=== PATIENT | female | born 1985 | race African-American/Black ===

== ENCOUNTER 2021-12-20 02:06 | Emergency (ER) | payer OTHER ==
[~2021-12-20] VITALS: Ht 167.6 cm; Wt 78.7 kg
[2021-12-20] MEDS ORDERED: LABE100T5 PO (02:14)
[2021-12-20] MEDS ORDERED: KETOROLAC 30 MG/ML 1ML VIAL IV ONE (07:45)
[2021-12-20] MEDS ORDERED: PANTOPRAZOLE 40MG VIAL (C9113 PER 1) IV ONE (07:45)
[2021-12-20 08:17] LABS: BASO % 0.1 % (0.0-1.0); HEMATOCRIT 38.9 % (36.0-47.0); LYMPH # 1.8 10^3/uL (1.5-5.0); LYMPH % 26.3 % (24.0-44.0); MEAN CORPUSCULAR HEMOGLOBIN 29.1 pg (27.0-33.0); MEAN CORPUSCULAR HGB CONC 33.4 g/dl (32.0-36.5); MONO # 0.4 10^3/uL (0.0-0.8); MONO % 6.2 % (2.0-8.0); NEUTROPHILS # 4.6 10^3/uL (1.5-8.5); NEUTROPHILS % 67.3 % (36.0-66.0); PLATELET COUNT, AUTOMATED 175 10^3/uL (150-450); RED BLOOD COUNT 4.47 10^6/uL (4.00-5.40); WHITE BLOOD COUNT 6.9 10^3/uL (4.0-10.0)
[2021-12-20 08:48] LABS: ALT/SGPT 21 U/L (12-78); BILIRUBIN,DIRECT < 0.1 MG/DL (0.0-0.2); BILIRUBIN,TOTAL 0.2 MG/DL (0.2-1.0); LIPASE 92 U/L (73-393); TOTAL PROTEIN 7.9 GM/DL (6.4-8.2)
[2021-12-20 09:24] VITALS: BP 138/70
[2021-12-20] MEDS ORDERED: ISOVUE-370 76% 100ML VIAL As Ordered ONE (09:40)
[2021-12-20] MEDS ORDERED: ACET325C5 PO ×2 (11:40→11:41)
== END 2021-12-20 11:44 | disposition home or self-care (01) ==
LOC: M ED 02:06
DX: N85.2 Hypertrophy of uterus (principal); K42.0 Umbilical hernia with obstruction, without gangrene; R10.31 Right lower quadrant pain; I10 Essential (primary) hypertension
CPT/HCPCS: 74177; 80047; 80076; 81001; 83690; 84702; 85025; 96374; 96375; 99284; C9113; J1885; Q9967

== ENCOUNTER 2022-02-02 09:50 | Emergency (ER) | payer OTHER ==
[~2022-02-02] VITALS: Ht 160 cm; Wt 78.9 kg
[~2022-02-02 09:50] MED LIST: ACET325C5 PO; LABE100T5 PO
[2022-02-02 11:42] LABS: HEMATOCRIT 39.7 % (36.0-47.0); HEMOGLOBIN 13.5 g/dl (12.0-15.5); MEAN CORPUSCULAR HEMOGLOBIN 29.8 pg (27.0-33.0); MEAN CORPUSCULAR VOLUME 87.6 fl (80.0-96.0); PLATELET COUNT, AUTOMATED 167 10^3/uL (150-450); RED BLOOD COUNT 4.53 10^6/uL (4.00-5.40); WHITE BLOOD COUNT 6.2 10^3/uL (4.0-10.0)
[2022-02-02 14:27] VITALS: BP 163/92
[2022-02-02] MEDS ORDERED: LABETALOL 100MG TAB PO ONE (14:45)
[2022-02-02 15:01] LABS: GC DNA AMPLIFICATION NEGATIVE (NEGATIVE)
== END 2022-02-02 14:45 | disposition home or self-care (01) ==
LOC: M ED 09:50
DX: Z32.01 Encounter for pregnancy test, result positive (principal); O20.8 Other hemorrhage in early pregnancy; O16.9 Unspecified maternal hypertension, unspecified trimester; Z87.59 Personal history of other complications of pregnancy, childbirth and the puerperium; O34.10 Maternal care for benign tumor of corpus uteri, unspecified trimester; Z79.899 Other long term (current) drug therapy

== ENCOUNTER → 2022-08-08 | Outpatient (CLI) | payer OTHER ==
[~2022-08-08] MED LIST changes: +ISOVUE-300 61% 50ML VIAL As Ordered ONE; +ISOVUE-370 76% 100ML VIAL As Ordered ONE; -LABE100T5 PO; +LABE100T71 PO; +SILVER NITRATE APPLICATOR (1 = QTY 10) As Ordered ONE
== END ==
LOC: M RADPRO 11:24
PROVIDERS: ATTEND Obstetrics & Gynecology
DX: N97.9 Female infertility, unspecified (principal)
CPT/HCPCS: 58340; 74740; Q9967

== ENCOUNTER → 2023-03-29 | Outpatient (CLI) | payer OTHER ==
[~2023-03-29] MED LIST changes: -ISOVUE-300 61% 50ML VIAL As Ordered ONE; -ISOVUE-370 76% 100ML VIAL As Ordered ONE; -SILVER NITRATE APPLICATOR (1 = QTY 10) As Ordered ONE
== END ==
LOC: M RAD 14:38
PROVIDERS: ATTEND Obstetrics & Gynecology
DX: Z36.87 Encounter for antenatal screening for uncertain dates (principal); O34.11 Maternal care for benign tumor of corpus uteri, first trimester; Z3A.01 Less than 8 weeks gestation of pregnancy

== ENCOUNTER → 2023-03-31 | Outpatient (CLI) | payer OTHER | LOC: M LAB 09:37 | PROVIDERS: ATTEND Obstetrics & Gynecology | DX: Z36.89 Encounter for other specified antenatal screening (principal) ==

== ENCOUNTER → 2023-04-03 | Outpatient (CLI) | payer OTHER | LOC: M RAD 12:22 | PROVIDERS: ATTEND Obstetrics & Gynecology | DX: O02.1 Missed abortion (principal) ==

== ENCOUNTER → 2023-04-18 | Outpatient (CLI) | payer OTHER | LOC: M RAD 15:18 | PROVIDERS: ATTEND Obstetrics & Gynecology | DX: Z36.2 Encounter for other antenatal screening follow-up (principal); Z3A.01 Less than 8 weeks gestation of pregnancy; O10.011 Pre-existing essential hypertension complicating pregnancy, first trimester; D25.9 Leiomyoma of uterus, unspecified; O34.11 Maternal care for benign tumor of corpus uteri, first trimester ==

== ENCOUNTER → 2023-05-04 | Outpatient (CLI) | payer OTHER | LOC: M PLARAD 08:44 | PROVIDERS: ATTEND Student in an Organized Health Care Education/Training Program | DX: D25.9 Leiomyoma of uterus, unspecified (principal); N97.9 Female infertility, unspecified ==

== ENCOUNTER 2024-11-25 15:03 | Emergency (ER) | payer OTHER ==
[~2024-11-25] VITALS: Ht 162.6 cm; Wt 90.0 kg
[~2024-11-25 15:03] MED LIST changes: +LABE100T40 PO; -LABE100T71 PO
[2024-11-25 16:36] LABS: BASO % 0.2 % (0.0-1.0); EOS % 0.5 % (0.0-3.0); HEMATOCRIT 32.5 % (36.0-47.0); HEMOGLOBIN 11.1 g/dl (12.0-15.5); LYMPH # 2.8 10^3/uL (1.5-5.0); LYMPH % 42.4 % (24.0-44.0); MEAN CORPUSCULAR HEMOGLOBIN 29.5 pg (27.0-33.0); MEAN CORPUSCULAR HGB CONC 34.2 g/dl (32.0-36.5); MEAN CORPUSCULAR VOLUME 86.4 fl (80.0-96.0); MONO # 0.5 10^3/uL (0.0-0.8); MONO % 7.8 % (2.0-8.0); NEUTROPHILS # 3.2 10^3/uL (1.5-8.5); NEUTROPHILS % 48.9 % (36.0-66.0); PLATELET COUNT, AUTOMATED 191 10^3/uL (150-450); RED BLOOD COUNT 3.76 10^6/uL (4.00-5.40); WHITE BLOOD COUNT 6.6 10^3/uL (4.0-10.0)
[2024-11-25 17:07] LABS: BLOOD UREA NITROGEN 14 MG/DL (9-23); CALCIUM LEVEL 10.5 MG/DL (8.5-10.1); CARBON DIOXIDE LEVEL 24 MMOL/L (20-31); CHLORIDE LEVEL 108 MMOL/L (98-107); CREATININE FOR GFR 0.57 MG/DL (0.55-1.30); GLOMERULAR FILTRATION RATE > 60.0 (>60); GLUCOSE, FASTING 91 MG/DL (60-100); POTASSIUM SERUM 4.3 MMOL/L (3.5-5.1); SODIUM LEVEL 139 MMOL/L (136-145)
[2024-11-25 17:39] LABS: HCG, SERUM QUANTITATIVE 45083.4 MIU/ML (<4.2)
[2024-11-25 22:56] VITALS: BP 170/81; TEMP 99.4; O2SAT 100
== END 2024-11-25 22:58 | disposition home or self-care (01) ==
LOC: M ED 15:03
DX: O20.8 Other hemorrhage in early pregnancy (principal); O34.11 Maternal care for benign tumor of corpus uteri, first trimester; O24.111 Pre-existing type 2 diabetes mellitus, in pregnancy, first trimester; O13.1 Gestational [pregnancy-induced] hypertension without significant proteinuria, first trimester; O09.521 Supervision of elderly multigravida, first trimester; Z87.59 Personal history of other complications of pregnancy, childbirth and the puerperium; Z3A.01 Less than 8 weeks gestation of pregnancy; Z79.899 Other long term (current) drug therapy

== ENCOUNTER → 2025-02-05 | Outpatient (CLI) | payer OTHER ==
[2025-02-05 18:20] LABS: HEMATOCRIT 32.9 % (36.0-47.0); MEAN CORPUSCULAR HEMOGLOBIN 29.6 pg (27.0-33.0); MEAN CORPUSCULAR HGB CONC 33.4 g/dl (32.0-36.5); MEAN CORPUSCULAR VOLUME 88.7 fl (80.0-96.0); PLATELET COUNT, AUTOMATED 204 10^3/uL (150-450); RED BLOOD COUNT 3.71 10^6/uL (4.00-5.40); WHITE BLOOD COUNT 6.9 10^3/uL (4.0-10.0)
[2025-02-05 19:05] LABS: HIV 1&2 SCREEN NEGATIVE (NEGATIVE)
[2025-02-05 19:13] LABS: HEPATITIS C VIRUS ABY INDEX 0.03 INDEX (<0.8)
== END ==
LOC: M PLALAB 15:48
PROVIDERS: ATTEND Specialist
DX: Z34.81 Encounter for supervision of other normal pregnancy, first trimester (principal)

== ENCOUNTER → 2025-02-11 | Outpatient (CLI) | payer OTHER | LOC: M WHC 06:49 | PROVIDERS: ATTEND Specialist | DX: Z36.89 Encounter for other specified antenatal screening (principal); O24.112 Pre-existing type 2 diabetes mellitus, in pregnancy, second trimester; Z3A.18 18 weeks gestation of pregnancy ==

== ENCOUNTER → 2025-04-30 | Outpatient (CLI) | payer OTHER ==
[~2025-04-30] MED LIST changes: +ACET-897 PO; +ASPI81CH33 PO; +BENA25CA4 PO; +CYCL5TAB4 PO; +FAMO20TA PO; +FIOR1CAP PO; +HUMU1INJ2; +INSU100I12; +PRENTAB9 PO; +REGL10TA6 PO
== END ==
LOC: M WHC 14:40
PROVIDERS: ATTEND Specialist
DX: O24.112 Pre-existing type 2 diabetes mellitus, in pregnancy, second trimester (principal)

== ENCOUNTER 2025-05-03 10:31 | Emergency (ER) | payer OTHER ==
[~2025-05-03] VITALS: Ht 162.6 cm; Wt 94.6 kg
[~2025-05-03 10:31] MED LIST changes: -ACET-897 PO; -ASPI81CH33 PO; -BENA25CA4 PO; -CYCL5TAB4 PO; -FAMO20TA PO; -FIOR1CAP PO; -HUMU1INJ2; -INSU100I12; -PRENTAB9 PO; -REGL10TA6 PO
[2025-05-03 10:34] VITALS: BP 139/73; TEMP 97.3; O2SAT 99
[2025-05-03] MEDS ORDERED: CYCL5TAB4 PO (11:13)
[2025-05-03] MEDS ORDERED: FAMO20TA PO (11:13)
[2025-05-03] MEDS ORDERED: PRENTAB9 PO (11:13)
[2025-05-03] MEDS ORDERED: FIOR1CAP PO (11:18)
[2025-05-03] MEDS ORDERED: INSU100I12 (11:22)
[2025-05-04] MEDS ORDERED: ACET-897 PO (14:47)
[2025-05-04] MEDS ORDERED: HUMU1INJ2 (15:00)
[2025-05-04] MEDS ORDERED: REGL10TA6 PO (18:10)
[2025-05-04] MEDS ORDERED: BENA25CA4 PO (18:10)
== END 2025-05-03 10:37 | disposition admitted as inpatient to this hospital (09) ==
LOC: M ED 10:31
DX: Z53.21 Procedure and treatment not carried out due to patient leaving prior to being seen by health care provider (principal)

== ENCOUNTER 2025-05-03 10:41 | Outpatient (CLI) | payer OTHER ==
[~2025-05-03] VITALS: Ht 152.4 cm; Wt 95.0 kg
[2025-05-03 11:00] VITALS: BP 126/63
[2025-05-03] MEDS ORDERED: PRENTAB9 PO (11:13)
[2025-05-03] MEDS ORDERED: FAMO20TA PO (11:13)
[2025-05-03] MEDS ORDERED: CYCL5TAB4 PO (11:13)
[2025-05-03] MEDS ORDERED: FIOR1CAP PO (11:18)
[2025-05-03] MEDS ORDERED: INSU100I12 (11:22)
[2025-05-03 11:57] VITALS: BP 114/67
[2025-05-04] MEDS ORDERED: ACET-897 PO (14:47)
[2025-05-04] MEDS ORDERED: HUMU1INJ2 (15:00)
[2025-05-04] MEDS ORDERED: BENA25CA4 PO (18:10)
[2025-05-04] MEDS ORDERED: REGL10TA6 PO (18:10)
== END 2025-05-03 12:50 | disposition home or self-care (01) ==
LOC: M LDO 10:41
PROVIDERS: ATTEND Obstetrics & Gynecology
DX: O14.93 Unspecified pre-eclampsia, third trimester (principal); O10.013 Pre-existing essential hypertension complicating pregnancy, third trimester; O24.113 Pre-existing type 2 diabetes mellitus, in pregnancy, third trimester; O09.523 Supervision of elderly multigravida, third trimester; O26.23 Pregnancy care for patient with recurrent pregnancy loss, third trimester; Z98.890 Other specified postprocedural states; Z87.59 Personal history of other complications of pregnancy, childbirth and the puerperium; Z79.4 Long term (current) use of insulin; Z75.8 Other problems related to medical facilities and other health care; Z3A.30 30 weeks gestation of pregnancy
CPT/HCPCS: 59025; G0463

== ENCOUNTER 2025-05-05 15:24 | Outpatient (CLI) | payer OTHER ==
[~2025-05-05] VITALS: Ht 152.4 cm; Wt 96.1 kg
[~2025-05-05 15:24] MED LIST changes: +ACET-897 PO; +BENA25CA4 PO; +CYCL5TAB4 PO; +FAMO20TA PO; +FIOR1CAP PO; +HUMU1INJ2; +INSU100I12; +PRENTAB9 PO; +REGL10TA6 PO
[2025-05-05 15:45] VITALS: BP 134/65
[2025-05-05] MEDS ORDERED: ASPI81CH33 PO (15:51)
[2025-05-05] MEDS: BETAMETHASONE SOLUSPAN 6 MG/ML 5 ML VIAL IM ONE (15:59)
[2025-05-05 16:00] VITALS: BP 164/75
[2025-05-05 16:15] VITALS: BP 147/62
== END 2025-05-05 16:30 | disposition home or self-care (01) ==
LOC: M LDO 15:24
PROVIDERS: ATTEND Specialist
DX: O10.013 Pre-existing essential hypertension complicating pregnancy, third trimester (principal); O24.113 Pre-existing type 2 diabetes mellitus, in pregnancy, third trimester; Z79.4 Long term (current) use of insulin; O26.22 Pregnancy care for patient with recurrent pregnancy loss, second trimester; Z3A.30 30 weeks gestation of pregnancy
CPT/HCPCS: 59025; 96372; G0463; J0702

== ENCOUNTER 2025-05-12 10:16 | Outpatient (CLI) | payer OTHER ==
[~2025-05-12] VITALS: Ht 152.4 cm; Wt 95.2 kg
[~2025-05-12 10:16] MED LIST changes: +ASPI81CH33 PO; -HUMU1INJ2; +HUMU1INJ2 SQ
[2025-05-12 10:39] VITALS: BP 124/74
[2025-05-12 10:54] VITALS: BP 139/79
[2025-05-12] MEDS ORDERED: LABE200T5 PO (10:57)
[2025-05-12] MEDS ORDERED: OXYC1TAB23 PO (11:00)
[2025-05-12] MEDS ORDERED: HOME MED LIST COMPLETE! XX SCH (11:05)
[2025-05-12 11:09] VITALS: BP 135/74
[2025-05-12 11:24] VITALS: BP 130/77
[2025-05-12 12:43] LABS: PLATELET COUNT, AUTOMATED 168 10^3/uL (150-450)
[2025-05-12 12:44] VITALS: BP 133/78
[2025-05-12 13:08] LABS: LDH LACTATE DEHYDROGENASE 351 U/L (120-246)
[2025-05-12 13:51] LABS: ALT/SGPT 36 U/L (7.0-40); AST/SGOT 45 U/L (<34); CREATININE FOR GFR 0.51 MG/DL (0.55-1.30); GLOMERULAR FILTRATION RATE > 90.0 (>60)
[2025-05-12 15:50] VITALS: BP 131/62
[2025-06-04] MEDS ORDERED: FAMO1TAB11 PO (07:28)
[2025-06-04] MEDS ORDERED: ONDA-83 PO (07:28)
[2025-06-04] MEDS ORDERED: VITA100093 PO (07:28)
[2025-06-04] MEDS ORDERED: ASPI81TA26 PO (07:28)
[2025-06-04] MEDS ORDERED: METO10TA3 PO (07:28)
[2025-06-04] MEDS ORDERED: DIPH-429 (07:56)
[2025-06-04] MEDS ORDERED: PERCOCET PO (07:57)
[2025-06-18] MEDS ORDERED: COLA100C5 PO (09:12)
[2025-06-18] MEDS ORDERED: IBUP80TA PO (09:12)
[2025-06-20] MEDS ORDERED: METF-838 PO (09:10)
== END 2025-05-12 16:52 | disposition home or self-care (01) ==
LOC: M LDO 10:16
PROVIDERS: ATTEND Obstetrics & Gynecology
DX: O10.013 Pre-existing essential hypertension complicating pregnancy, third trimester (principal); R51.0 Headache with orthostatic component, not elsewhere classified; O24.113 Pre-existing type 2 diabetes mellitus, in pregnancy, third trimester; O09.213 Supervision of pregnancy with history of pre-term labor, third trimester; Z87.59 Personal history of other complications of pregnancy, childbirth and the puerperium; Z3A.31 31 weeks gestation of pregnancy
CPT/HCPCS: 36415; 59025; 76815; 76819; 76820; 82247; 83615; 84450; 84460; 84550; 85027; G0463

== ENCOUNTER 2025-05-20 20:43 | Emergency (ER) | payer OTHER ==
[~2025-05-20] VITALS: Ht 152.4 cm; Wt 91.8 kg
[~2025-05-20 20:43] MED LIST changes: +HUMU1INJ2; -HUMU1INJ2 SQ; +LABE200T5 PO; +OXYC1TAB23 PO
[2025-05-20 20:46] VITALS: BP 141/77; TEMP 97.5; O2SAT 100
== END 2025-05-20 21:13 | disposition left against medical advice (07) ==
LOC: M ED 20:43
DX: Z53.21 Procedure and treatment not carried out due to patient leaving prior to being seen by health care provider (principal)

== ENCOUNTER 2025-05-20 21:24 | Outpatient (CLI) | payer OTHER ==
[~2025-05-20] VITALS: Ht 152.4 cm; Wt 92.7 kg
[2025-05-20 21:42] VITALS: BP 134/72
[2025-05-20] MEDS: ONDANSETRON 4MG ORAL DISINTEGRATING TAB PO ONE (22:41)
[2025-05-20] MEDS: LACTATED RINGER'S 1000 ML IV ONE (22:44)
[2025-05-20] MEDS ORDERED: OMEPRAZOLE 20MG CAP PO ONE (23:00)
[2025-05-20 23:09] LABS: PLATELET COUNT, AUTOMATED 167 10^3/uL (150-450)
[2025-05-20 23:14] VITALS: BP 145/77
[2025-05-20] MEDS: OMEPRAZOLE 20MG CAP PO ONE (23:14)
[2025-05-20] MEDS ORDERED: OMEPRAZOLE/SODIUM BICARB 20-840MG 10ML ORAL SYRINGE GT ONE (23:30)
[2025-05-21] MEDS: ACETAMINOPHEN 500 MG TAB PO ONE
[2025-05-21] MEDS: LR 1,000 ML IV SCH
[2025-05-21 05:29] VITALS: BP 140/71
[2025-05-21] MEDS: FIORICET TAB PO ONE (05:32)
== END 2025-05-21 08:30 | disposition home or self-care (01) ==
LOC: M LDO 21:24
PROVIDERS: ATTEND Advanced Practice Midwife
DX: O21.2 Late vomiting of pregnancy (principal); O09.513 Supervision of elderly primigravida, third trimester; O10.013 Pre-existing essential hypertension complicating pregnancy, third trimester; O24.113 Pre-existing type 2 diabetes mellitus, in pregnancy, third trimester; O26.23 Pregnancy care for patient with recurrent pregnancy loss, third trimester; O09.213 Supervision of pregnancy with history of pre-term labor, third trimester; O34.13 Maternal care for benign tumor of corpus uteri, third trimester; D25.9 Leiomyoma of uterus, unspecified; E11.9 Type 2 diabetes mellitus without complications; Z75.8 Other problems related to medical facilities and other health care; Z3A.32 32 weeks gestation of pregnancy; Z79.4 Long term (current) use of insulin
CPT/HCPCS: 59025; 85027; G0463

== ENCOUNTER 2025-05-28 10:01 | Outpatient (CLI) | payer OTHER ==
[~2025-05-28] VITALS: Ht 152.4 cm; Wt 94.2 kg
[2025-05-28] MEDS ORDERED: REGL5TAB2 PO (10:30)
[2025-05-28 10:33] VITALS: BP 117/70
[2025-05-28] MEDS: ONDANSETRON 4MG ORAL DISINTEGRATING TAB SL PRN (11:20)
[2025-05-28 11:35] LABS: APPEARANCE, URINE HAZY (CLEAR); BACTERIA, URINE AUTO 1+ (NEGATIVE); BILIRUBIN, URINE AUTO NEGATIVE (NEGATIVE); BLOOD, URINE BLOOD 1+ (NEGATIVE); GLUCOSE, URINE (UA) AUTO NEGATIVE (NEGATIVE); KETONE, URINE AUTO NEGATIVE (NEGATIVE); LEUKOCYTE ESTERASE, URINE AUTO NEGATIVE (NEGATIVE); MUCUS, URINE SMALL (NEGATIVE); NITRITE, URINE AUTO NEGATIVE (NEGATIVE); PROTEIN, URINE AUTO 1+ mg/dL (NEGATIVE); RBC, URINE AUTO 4 /HPF (0-3); SPECIFIC GRAVITY URINE AUTO 1.015 (1.002-1.035); SQUAMOUS EPITHELIAL CELL UR AU 1 /HPF (0-6); UROBILINOGEN, URINE AUTO 2.0 mg/dL (0.0-2.0); WBC, URINE AUTO 2 /HPF (0-3)
[2025-05-28 12:07] VITALS: BP 113/60
[2025-05-28 12:15] LABS: PLATELET COUNT, AUTOMATED 164 10^3/uL (150-450)
[2025-05-28 12:31] LABS: ALT/SGPT 29 U/L (7.0-40); AST/SGOT 27 U/L (<34); CALCIUM LEVEL 9.2 MG/DL (8.5-10.1); CARBON DIOXIDE LEVEL 23 MMOL/L (20-31); CHLORIDE LEVEL 107 MMOL/L (98-107); CREATININE FOR GFR 0.52 MG/DL (0.55-1.30); GLOMERULAR FILTRATION RATE > 90.0 (>60); POTASSIUM SERUM 3.6 MMOL/L (3.5-5.1); SODIUM LEVEL 142 MMOL/L (136-145)
[2025-05-28] MEDS ORDERED: ONDA-282 PO (13:05)
[2025-05-28] MEDS ORDERED: LABE200T5 PO (13:05)
[2025-05-28] MEDS ORDERED: OXYC1TAB23 PO (13:06)
== END 2025-05-28 13:15 | disposition home or self-care (01) ==
LOC: M LDO 10:01
PROVIDERS: ATTEND Specialist
DX: O21.8 Other vomiting complicating pregnancy (principal); O10.013 Pre-existing essential hypertension complicating pregnancy, third trimester; O24.113 Pre-existing type 2 diabetes mellitus, in pregnancy, third trimester; Z79.4 Long term (current) use of insulin; O26.23 Pregnancy care for patient with recurrent pregnancy loss, third trimester
CPT/HCPCS: 36415; 59025; 80053; 81001; 85027; G0463

== ENCOUNTER → 2025-06-01 | Outpatient (CLI) | payer OTHER ==
[~2025-06-01] MED LIST changes: +ASPI81TA26 PO; +DIPH-429; +FAMO1TAB11 PO; -HUMU1INJ2; +HUMU1INJ2 SQ; +METO10TA3 PO; +ONDA-282 PO; +ONDA-83 PO; +PERCOCET PO; +REGL5TAB2 PO; +VITA100093 PO
[2025-06-01 15:28] LABS: ESTIMATED AVERAGE GLUCOSE 117.0 MG/DL (60-110)
== END ==
LOC: M PLALAB 13:00
PROVIDERS: ATTEND Obstetrics & Gynecology
DX: O24.319 Unspecified pre-existing diabetes mellitus in pregnancy, unspecified trimester (principal)

== ENCOUNTER → 2025-06-04 | Outpatient (CLI) | payer OTHER ==
[~2025-06-04] MED LIST changes: +COLA100C5 PO; +IBUP80TA PO; +METF-838 PO
== END ==
LOC: M WHC 14:26
PROVIDERS: ATTEND Obstetrics & Gynecology
DX: O10.913 Unspecified pre-existing hypertension complicating pregnancy, third trimester (principal); Z3A.35 35 weeks gestation of pregnancy

== ENCOUNTER → 2025-06-08 | Outpatient (REF) | payer OTHER ==
[~2025-06-08] MED LIST changes: -COLA100C5 PO; -IBUP80TA PO; -METF-838 PO
== END ==
LOC: M SFHCWAGY 12:25
PROVIDERS: ATTEND Obstetrics & Gynecology
DX: Z34.83 Encounter for supervision of other normal pregnancy, third trimester (principal)

== ENCOUNTER → 2025-06-08 | Outpatient (CLI) | payer OTHER | LOC: M WHC 09:33 | PROVIDERS: ATTEND Obstetrics & Gynecology | DX: O28.8 Other abnormal findings on antenatal screening of mother (principal); Z3A.00 Weeks of gestation of pregnancy not specified ==